=== PATIENT | female | born 1990 | race Caucasian/White ===

== ENCOUNTER 2016-11-11 01:33 | Inpatient (IN) | payer OTHER ==
[~2016-11-11] VITALS: Ht 167.6 cm; Wt 91.6 kg
[~2016-11-11 01:33] MED LIST: HYDR1TAB91 PO; IBUP-1152 PO
[2016-11-11] MEDS ORDERED: Lactated Ringer's 1,000 ML IV PRN (01:59)
[2016-11-11] MEDS ORDERED: Oxytocin 30 Units/500 mL LR 30 UNITS in IV Premix 1 EACH IV PRN ×2 (02:00→05:35)
[2016-11-11] MEDS ORDERED: fentaNYL-PF 50 mCg/mL 2 mL Inj IVPUSH PRN ×2 (02:00→03:40)
[2016-11-11] MEDS ORDERED: Methylergonovine 0.2 mg/mL Inj IM PRN ×2 (02:00→05:35)
[2016-11-11] MEDS ORDERED: Hemorrhage Kit, Post Partum XX ONE ×2 (02:00→05:35)
[2016-11-11] MEDS ORDERED: Oxytocin 10 Unit/mL Inj IM PRN ×2 (02:00→05:35)
[2016-11-11] MEDS ORDERED: Sodium Chloride LOK Flush 10 mL Syringe IVFLUSH PRN (02:00)
[2016-11-11] MEDS ORDERED: Carboprost 250 mCg/mL Inj IM PRN ×2 (02:00→05:35)
[2016-11-11 02:30] LABS: Mean Corpuscular Hemoglobin 29.7 pg (27.0-35.0); Mean Corpuscular Volume 89.9 fL (81-100)
[2016-11-11] MEDS ORDERED: fentaNYL 2 mCg/mL-Bupivicaine 0.125% 100 mL Premix EPIDURAL ONE (03:25)
[2016-11-11] MEDS: Lactated Ringer's 1,000 ML IV SCH ×5 (03:39→21:34)
[2016-11-11] MEDS ORDERED: Lactated Ringer's 500 ML IV ONE (03:39)
--- NOTE | 2016-11-11 03:39 | PCM.HPANE ---
Patient Data Surgeon Admitting Provider:Kofi Domingo MD Attending Provider:Kofi Domingo MD Primary Care Physician:Kofi Domingo MD Other Provider:Richar Samayoa Anesthesia Reason for Visit Term Labor TERM LABOR Ht/WT & BMI Body Mass Index Allergies Coded Allergies: No Known Allergies (Unverified Allergy, 09/07/13) Past Anesthesia History Anesthesia History: Denies:: Abnormal Airway, Anesthesia Reactions, Difficult Intubation, Fam Anesthesia Reaction, Fam Malignant Hypertherm, Malignant Hyperthermia Diabetes History Hx Diabetes?: No MRSA MRSA: No Medications Active Scripts IBUPROFEN-Expunged Drug, Do Not Renew! 800 Mg [id number] Mg PO Q6 PRN For Pain # 20 Ref 1 Prov:Kofi Domingo MD 09/07/13 Hydrocod/APAP-Expunged, Do Not Renew! 1 Tab Tablet1-2 Tab PO Q4 PRN For Pain # 20 Prov:Kofi Domingo MD 09/07/13 History History of ENT Problems?: No HEENT History: Denies:: Abnormal Airway Cataracts Difficult Intubation Dysphagia Glaucoma Hearing Problem Sinus Problem TMJ Denture Type: None Teeth Condition: Within Normal Limits Hx of Heart Problems?: No Cardiovascular History: Denies:: AICD Abdominal Aortic Aneurism Atrial Fibrillation Cardiac Surgery Chest Pain Congestive Heart Failure Coronary Artery Disease Edema Heart Murmur Hypertension Irregular Heartbeat Pacemaker Peripheral Vascular Rheumatic Fever Thrombophlebitis Valvular Heart Disease Hx of Respiratory Problem?: No Respiratory History: Denies:: Asthma COPD Chest Surgery Cough Dyspnea Emphysema Hemoptysis Oxygen Administration Pneumonia Pulmonary Embolism Tuberculosis Use of C-PAP Machine Use of Inhalers / NEBS Hx Neurologic Problems?: No Hx of GI Problems?: No Hx of Problems?: No HX of Peritoneal Dialysis: No Female Hx: Positive for:: Currently Hx Musculoskeletal Problems?: No Hx of Psycho/Social Problems?: No Hx Surgeries?: Yes Hx Any Other Health Problems?: No Hx Diabetes: No Hx Alcohol Use: NoHx Substance Use: NoHave You Smoked inLast 12 mo: No Stop/Bang MARISOL Risk Assessment: Low Risk, <3 Yes Risk Assessment Category Category 1A: Patient has history of documented sleep apnea, and HAS NOT received any narcotic, sedative or anesthesia administration during this stay. Category 1B: Patient has history of documented sleep apnea, and HAS received any narcotic , sedative or anesthesia administration during this stay Category 2: Patient has SUSPECTED Obstructive Sleep Apnea, and HAS received any narcotic , sedative or anesthesia administration during this stay. Category 3: Patient has SUSPECTED Obstructive Sleep Apnea and HAS NOT received narcotic, sedative or anesthesia administration during this stay. Category 4: Outpatient in Procedural Areas with known sleep apnea or who screen positive for High Risk via the STOP/BANG questionnaire. Exam Exam General Appearance: Alert, Oriented X3, Cooperative HEENT/AIRWAY: MP 1 Heart: Exam Unremarkable Meds/Labs/Diagnostics Labs Test 11/11/16 02:15 White Blood Count 13.8th/mm3 (3.8-10.1) Red Blood Count 4.27mil/mm3 (3.90-5.20) Hemoglobin 12.7g/dL (12.0-15.6) Hematocrit 38.4% (35.0-46.0) Mean Corpuscular Volume 89.9fL (81-100) Mean Corpuscular Hemoglobin 29.7pg (27.0-35.0) Mean Corpuscular Hemoglobin Concent 33.1% (32.0-37.0) Red Cell Distribution Width 12.3% (12.3-15.4) Platelet Count 226bil/L (150-400) Plan Impression Patient chart reviewed, patient interviewed and anesthestic plan with risks, benefits, and alternatives discussed, and informed consent obtained. ASA Physical Status: ASA1 Normal Healthy Anesthetic Plan: Epidural Bene/Risks/Altern/Consents: Yes HP Complete Prior to Induction: Yes Faustino Dean DO November 11, 2016 03:39
[2016-11-11] MEDS ORDERED: EPHEDrine Sulfate 50 mg/mL Inj IVPUSH PRN (03:40)
[2016-11-11] MEDS ORDERED: Ondansetron 2 mg/mL 2 mL Inj IVPUSH PRN (03:40)
[2016-11-11] MEDS ORDERED: Atropine 1 mg/10 mL (Code) Syringe IVPUSH PRN (03:40)
[2016-11-11] MEDS ORDERED: fentaNYL 2 mCg/mL-Bupiv 0.125% 100 ML EPIDURAL SCH (03:40)
[2016-11-11] MEDS ORDERED: Witch Hazel-Glycerin Pads TOPICAL PRN (05:35)
[2016-11-11] MEDS ORDERED: Measles-Mumps-Rubella Vaccine 0.5 mL Inj SUBQ ONE (05:35)
[2016-11-11] MEDS ORDERED: TdaP Vaccine 0.5 mL Inj IM ONE (05:35)
[2016-11-11] MEDS ORDERED: Influenza (Adult) Vaccine 0.5 mL Syringe IM ONE (05:35)
[2016-11-11] MEDS ORDERED: Benzocaine (Dermoplast) 20% 60 Gm Spray TOPICAL PRN (05:35)
[2016-11-11] MEDS ORDERED: LANOlin HPA 7 Gm Ointment TOPICAL PRN (05:35)
[2016-11-11] MEDS ORDERED: HYDROcodone-APAP 5-325 mg Tablet PO PRN (05:35)
--- NOTE | 2016-11-11 06:04 | HP ---
[address] [address] HISTORY AND PHYSICAL PATIENT: JACQUELIN REESE : 1990 MR#: [id number] ADMIT: 11/11/2016 JOB ID: [id number] CORRECTED REPORT: [facility] NOTE: DATE: 11/11/2016 SUBJECTIVE: The patient is a 26-year-old, G2, P1, AB 0, woman. Followed prenatally at [facility] by Dr. Domingo, see record for details. course has been uncomplicated. Note that due date is November 09, 2016, giving estimated gestational age of 40 and 2/7 weeks on admission. The patient went into labor and was admitted early this morning, and requested epidural for pain management. PHYSICAL EXAMINATION: On admission, last height, blood pressure and weight in the office were 66 1/2 inches, 124/76 and 200 pounds. Neck: No thyromegaly. Lungs: Clear to auscultation and percussion. Heart: Regular in rate and rhythm. Abdomen: Fundal height 41 cm. Positive heartbeat. Vertex presentation. Pelvic: Note surgical scarring (prior appendectomy). Pelvic examination: Vulva, vagina and cervix, no obvious epithelial abnormality. Cervix noted to be 4 cm dilated on admission. Vertex presentation, bag of water intact. DIAGNOSTIC DATA: Admission platelet count normal, see lab report for additional details. IMPRESSION: 1. A 40 and 2/7 weeks of gestation. 2. Active labor. 3. Negative group B strep. 4. Rh positive. 5. Rubella immune status. 6. Reproductive history: a. First --vaginal delivery of 7 pound 10 ounce baby, epidural. b. Second --current. 7. Surgical history: a. See reproductive history above. b. Appendectomy at 8 years of age. 8. History of abnormal Pap test and colposcopy (2011), Pap subsequently normal, no prior cervical treatment. 9. Family history of cleft palate, breast cancer and pancreatic cancer. PLAN: The patient has been admitted to [facility] in the morning of November 11, 2016, in active labor, anticipating vaginal delivery. Corrected by FRED 11/14/16 at 7:31am Report type.
--- NOTE | 2016-11-11 06:15 | PROG NOTE ---
[address] [address] PROGRESS NOTE PATIENT: JACQUELIN REESE : 1990 MR#: [id number] ADMIT: 11/11/2016 JOB ID: [id number] [facility] NOTE: DATE: 11/11/2016 SUBJECTIVE: The patient was admitted to early this morning at 4 cm dilatation in active labor at term. During the subsequent hours, patient has progressed up to now 10 cm dilatation, and she is beginning to push. She received epidural for anesthesia. We anticipate vaginal delivery, note that the patient is further along than at last delivery and it is her second child and thus larger baby is anticipated. PLAN: Continue labor management, beginning second stage pushing now, anticipating vaginal delivery.
--- NOTE | 2016-11-11 07:50 | PROG NOTE ---
[address] [address] PROGRESS NOTE PATIENT: JACQUELIN REESE : 1990 MR#: [id number] ADMIT: 11/11/2016 JOB ID: [id number] DATE: 11/11/2016 PROGRESS NOTE: The patient was admitted in labor early this morning. She progressed to complete cervical dilatation, and she received epidural for anesthesia. Once completely dilated, she learned to push well, and heart tracing was okay. Head steadily descended down to . Head then delivered across intact perineum. Note nuchal cord that simply delivered with the body, and there was no delay of delivery of the shoulders. Baby was active and crying and vigorous upon delivery. After 1 minute of delay, umbilical cord was clamped and cut, and cord was obtained for routine studies. Uterus then demonstrated some mild atony, leading to aggressive uterine massage, as well as intravenous Pitocin infusion. Uterus then contracted well. Blood loss was in the 350 cc range. Betadine solution was used to cleanse the vulvovaginal region. There were no lacerations. Uterine bleeding at this point was remaining little. Procedures were thus complete, and instrument/needle/sponge counts were all found to be correct. It certainly is anticipated that mother and baby will do very well during the timeframe.
[2016-11-12] MEDS: Lactated Ringer's 1,000 ML IV SCH ×2 (03:39→05:34)
[2016-11-12 06:23] LABS: Mean Corpuscular Hemoglobin 30.1 pg (27.0-35.0); Mean Corpuscular Volume 90.6 fL (81-100)
--- NOTE | 2016-11-12 13:07 | PCM.DIOB ---
Obstetrical Disch Instruction Dates of Hospitalization Date of Hospital Admission November 11, 2016 at 01:52 Providers Admitting Physician: Kofi Domingo MD Primary Care Physician: Kofi Domingo MD Attending Physician: Kofi Domingo MD Discharge Diagnosis Problems: (1) Status: Acute ICD Code: Z33.1 Diet Discharge Diet: No restrictions Activity Discharge Activity-General: Pelvic Rest for 6 weeks Dressing and Incisional Care Hygiene: May shower, Perineal care, Sitz bath, Dermoplast spray, Witch Deidra pads, Ice Follow Up Plan Follow-up appointment: Weeks (Follow up in 6 weeks for checkup with Dr. Domingo.) Call your provider for: Fever or Chills, Shortness of breath, Heavy vaginal bleeding, Red painful breasts Attending Statement *Patient has Ibuprofen at home for pain management. She may use 600mg po [id number] as needed for pain. *Patient also has Vitamin at home for daily use while nursing. Kofi Domingo MD November 12, 2016 13:07
[2016-11-12 13:17] VITALS: BP 123/76; PULSE 64; RESP 12
--- NOTE | 2016-11-12 16:49 | DIS ---
[address] [address] DISCHARGE SUMMARY PATIENT: JACQUELIN REESE : 1990 MR#: [id number] ADMIT: 11/11/2016 JOB ID: [id number] DIS: 11/12/2016 DISCHARGE DIAGNOSES: Term , delivered. PROCEDURES PERFORMED: 1. Epidural anesthesia. 2. Vaginal delivery. HOSPITAL COURSE: This patient was admitted to [facility] in labor, early on February 11, 2017. She subsequently went on to deliver vaginally, aided by epidural anesthesia. During the timeframe, patient did well, with stable vitals, afebrile, with reasonable bleeding and pain management, ambulating and voiding, without leg pain or shortness of breath, and handling baby well. hemoglobin was 12.7, and the patient was not dizzy. Patient requested discharge to home on the first day, i.e., on November 12, 2016 at her request as she was doing well. DISCHARGE PROGRAM: Patient will call p.r.n. Otherwise will follow up in six weeks for checkup. She will observe pelvic rest for six weeks. DISCHARGE MEDICATION: Includes ibuprofen and vitamin daily, use the former for pain management as needed, and the latter daily while nursing. She did not need prescriptions for these medications.
== END 2016-11-12 13:53 | disposition home or self-care (01) | DRG 560 ==
LOC: FBCO 01:33 → FBC 01:52
PROVIDERS: ADMIT Obstetrics & Gynecology; ATTEND Obstetrics & Gynecology
PROC: 10E0XZZ Delivery of Products of Conception, External Approach (ICD-10-PCS; principal; 2016-11-11)
DX: O69.81X0 Labor and delivery complicated by cord around neck, without compression, not applicable or unspecified (principal); O62.2 Other uterine inertia; Z3A.40 40 weeks gestation of pregnancy; Z37.0 Single live birth